=== PATIENT | female | born 1985 | race American Indian/Alaskan Native ===

== ENCOUNTER 2018-07-27 11:32 | Emergency (ER) | payer BC ==
[2018-07-27 11:32] VITALS: BMI 21.7
[2018-07-27 12:48] LABS: HCG,QUALITATIVE URINE NEGATIVE (NEGATIVE)
[2018-07-27] MEDS ORDERED: Sodium Chloride 0.9% 1,000 ML IV ONE (12:49)
[2018-07-27 12:53] LABS: SQUAMOUS EPITHIAL 2 /hpf (0-5); URINE BACTERIA RARE (<OCC); URINE BILIRUBIN NEGATIVE (NEGATIVE); URINE BLOOD NEGATIVE (NEGATIVE); URINE CLARITY Clear (Clear); URINE COLOR Yellow (YELLOW); URINE GLUCOSE (UA) NORMAL (Normal); URINE LEUKOCYTE ESTERASE 3+ Leu/uL (Negative); URINE PROTEIN NEGATIVE (NEGATIVE); URINE UROBILINOGEN NORMAL mg/dL (0.2-1.0)
[2018-07-27] MEDS ORDERED: Sodium Chloride 0.9% 1,000 ML ONE (13:07)
[2018-07-27 13:32] LABS: BASO % 0.2 % (0.0-2.0); HEMOGLOBIN 13.7 g/dL (11.0-16.0); LYMPH % 5.1 % (20.0-40.0); MEAN CORPUSCULAR HEMOGLOBIN 32.1 pg (27.0-31.0); MEAN CORPUSCULAR HGB CONC 33.3 g/dL (33.0-37.0); MEAN PLATELET VOLUME 9.3 fL (7.2-11.7); MONO # 1.4 K/uL (0.0-0.8); MONO % 7.2 % (0.0-10.0); NEUT # 16.8 K/uL (1.8-7.0); NEUT % 87.5 % (50.0-75.0); PLATELET COUNT 255 K/uL (130-400); RBC 4.26 Mil/uL (3.80-5.20); RED CELL DISTRIBUTION WIDTH 13.7 % (11.5-14.5)
[2018-07-27 13:34] LABS: MEAN CELL VOLUME 96.5 fL (81.0-99.0); WHITE BLOOD COUNT 19.2 K/uL (4.8-10.8)
[2018-07-27 13:47] LABS: ALB/GLOB RATIO 1.6 (1.0-2.1); ALBUMIN 4.4 g/dL (3.5-5.0); ALT/SGPT 12 U/L (9-52); AST/SGOT 20 U/L (14-36); BLOOD UREA NITROGEN 7 mg/dL (7-17); CALCIUM 9.6 mg/dl (8.6-10.4); GFR NON-AFRICAN AMERICAN > 60; LIPASE 44 U/L (23-300)
[2018-07-27] MEDS ORDERED: Iodixanol 320 MG/ML 100 ML BOTTLE IV ONE (14:02)
[2018-07-27 14:11] LABS: LYMPHOCYTE 6 % (20-40); MONOCYTE 3 % (0-10); NEUTROPHIL 91 % (50-75); TOTAL CELLS COUNTED 100
[2018-07-27 14:12] LABS: PLATELET ESTIMATE NORMAL (NORMAL)
[2018-07-27] MEDS ORDERED: Piperacillin/Tazobact 3.375 gm 100 ML IV STA (15:08)
[2018-07-27] MEDS ORDERED: Piperacillin/Tazobact 3.375 gm 100 ML IVPB ONE (15:27)
--- NOTE | 2018-07-27 16:27 | CT ---
Date of service: 07/27/2018 PROCEDURE: CT Abdomen and Pelvis with contrast HISTORY: right abd pain COMPARISON: Comparison is made with the previous study dated 02/04/2016 TECHNIQUE: Contrast dose: 100 mL of Visipaque 320 intravenously. Axial and reformatted coronal and sagittal CT images of the abdomen and pelvis were obtained after IV contrast administration. Radiation dose: Total exam DLP = 260.76 mGy-cm. This CT exam was performed using one or more of the following dose reduction techniques: Automated exposure control, adjustment of the mA and/or kV according to patient size, and/or use of iterative reconstruction technique. FINDINGS: LOWER THORAX: Unremarkable. LIVER: Mild hepatomegaly and mild diffuse low-attenuation of the liver is again noted. GALLBLADDER AND BILE DUCTS: Unremarkable. PANCREAS: Unremarkable. No gross lesion or ductal dilatation. SPLEEN: Unremarkable. ADRENALS: Unremarkable. No mass. KIDNEYS AND URETERS: Unremarkable. No hydronephrosis. No solid mass. VASCULATURE: Unremarkable. No aortic aneurysm. No aortic atherosclerotic calcification or mural plaque present. BOWEL: Mild diffuse wall thickening of the distal small bowel loops noted in the lower abdomen and pelvis suspicious for enteritis. APPENDIX: Normal appendix. PERITONEUM: Unremarkable. No free fluid. No free air. LYMPH NODES: Unremarkable. No enlarged lymph nodes. BLADDER: The urinary bladder is collapsed therefore cannot be evaluated. REPRODUCTIVE: Interval increase in the size of the uterus since the previous exam likely contains large heterogeneous fibroid. BONES: No acute fracture. OTHER FINDINGS: None. IMPRESSION: No evidence of acute appendicitis. Interval increase in the size of the uterus likely contains large heterogeneous fibroid. If clinically warranted further assessment by ultrasound may be obtained. Mild diffuse distal small bowel loops wall thickening suspicious for enteritis.
--- NOTE | 2018-07-27 16:55 | C.PDOC ---
History Of Present Illness 32 yo female come in for evaluation of suprapubuc/RLQ pain gradually developed since yesterday. Pain is constant, non-radiating, not related to urination or food intake. Denies fever, chills, recent illness, vomiting, diarrhea, UTI sx, hematuria, vaginal irritation or discharge. Ambulatory. Time Seen by Provider: 07/27/18 12:27 Chief Complaint (Nursing): Abdominal Pain History Per: Patient Past Medical History Reviewed: Historical Data, Nursing Documentation, Vital Signs Vital Signs: Last Vital Signs Temp 99.8 F H 07/27/18 14:54 Pulse 86 07/27/18 14:54 Resp 16 07/27/18 14:54 BP 134/82 07/27/18 14:54 Pulse Ox 100 07/27/18 14:54 - Medical History PMH: Fractures (LEFT TIBIAL PLATEAU 04/18/15), HTN Denies: Chronic Kidney Disease - [facility] Procedures INTRODUCE REGIONAL ANESTH IN PERIPH NRV, PLEXI, PERC (04/28/15) REPOSITION LEFT TIBIA WITH INT FIX, OPEN APPROACH (04/28/15) Family History: States: Unknown Family Hx - Social History Hx Tobacco Use: Yes Hx Alcohol Use: Yes (Few cocktails on a weekend.) Hx Substance Use: No - Immunization History Hx Tetanus Toxoid Vaccination: Yes Hx Influenza Vaccination: No Hx Pneumococcal Vaccination: No Review Of Systems Except As Marked, All Systems Reviewed And Found Negative. Constitutional: Negative for: Fever, Chills ENT: Negative for: Throat Pain Cardiovascular: Negative for: Chest Pain Respiratory: Negative for: Cough, Shortness of Breath Gastrointestinal: Positive for: Abdominal Pain. Negative for: Nausea, Vomiting, Diarrhea, Melena, Hematochezia, Hematemesis Genitourinary: Negative for: Dysuria Skin: Negative for: Rash Physical Exam - Physical Exam Appears: Well, Non-toxic, No Acute Distress Skin: Normal Color, Warm, Dry Head: Normacephalic Eye(s): bilateral: PERRL Nose: No Discharge Oral Mucosa: Moist Throat: No Erythema, No Drooling Neck: Trachea Midline, Supple Cardiovascular: Rhythm Regular, No Murmur, No JVD Respiratory: No Decreased Breath Sounds, No Accessory Muscle Use, No Stridor, No Wheezing Gastrointestinal/Abdominal: Soft, Tenderness (mod spurapubic tenderness, mild RLQ tenderness), No Distention, No Guarding, No Rebound Back: No CVA Tenderness Extremity: Normal ROM Neurological/Psych: Oriented x3, Normal Speech ED Course And Treatment - Laboratory Results Result Diagrams: 07/27/18 13:14 07/27/18 13:14 Lab Results: Total Bilirubin 0.9 mg/dL (0.2-1.3) 07/27/18 13:14 AST 20 U/L (14-36) 07/27/18 13:14 ALT 12 U/L (9-52) 07/27/18 13:14 Alkaline Phosphatase 92 U/L (38-126) 07/27/18 13:14 Total Protein 7.2 g/dL (6.3-8.3) 07/27/18 13:14 Albumin 4.4 g/dL (3.5-5.0) 07/27/18 13:14 Globulin 2.8 gm/dL (2.2-3.9) 07/27/18 13:14 Albumin/Globulin Ratio 1.6 (1.0-2.1) 07/27/18 13:14 Lipase 44 U/L (23-300) 07/27/18 13:14 Urine Color Yellow (YELLOW) 07/27/18 12:37 Urine Clarity Clear (Clear) 07/27/18 12:37 Urine pH 6.0 (5.0-8.0) 07/27/18 12:37 Ur Specific [place] 1.006 (1.003-1.030) 07/27/18 12:37 Urine Protein Negative mg/dL (NEGATIVE) 07/27/18 12:37 Urine Glucose (UA) Normal mg/dL (Normal) 07/27/18 12:37 Urine Ketones Negative mg/dL (NEGATIVE) 07/27/18 12:37 Urine Blood Negative (NEGATIVE) 07/27/18 12:37 Urine Nitrate Negative (NEGATIVE) 07/27/18 12:37 Urine Bilirubin Negative (NEGATIVE) 07/27/18 12:37 Urine Urobilinogen Normal mg/dL (0.2-1.0) 07/27/18 12:37 Ur Leukocyte Esterase 3+ Isidro/uL (Negative) H 07/27/18 12:37 Urine WBC (Auto) 12 /hpf (0-5) H 07/27/18 12:37 Urine RBC (Auto) 4 /hpf (0-3) H 07/27/18 12:37 Ur Squamous Epith Cells 2 /hpf (0-5) 07/27/18 12:37 Urine Bacteria Rare (<OCC) 07/27/18 12:37 Urine HCG, Qual Negative (NEGATIVE) 07/27/18 12:37 Urine HCG, Qual Negative (NEGATIVE) 07/27/18 12:37 O2 Sat by Pulse Oximetry: 100 Pulse Ox Interpretation: Normal - CT Scan/US CT A/P Other Rad Studies (CT/US): Radiology Report Reviewed CT/US Interpretation: Patient Name / ID : NELL FOX / [id number]. Exam Date : 07/27/2018 15:16:27 ( Approved ). Study Comment : Sex / Age : F / 32Y. Creator : Judith Hendrix. Dictator : Familia Feliz MD. Embedder : Emt Driver : Familia Feliz MD. Approver2 : Report Date : 07/27/2018 15:40:51. My Comment : . Date of service: 07/27/2018. PROCEDURE: CT Abdomen and Pelvis with contrast. HISTORY: right abd pain. COMPARISON: Comparison is made with the previous study dated 02/04/2016. TECHNIQUE: Contrast dose: 100 mL of Visipaque 320 intravenously. Axial and reformatted coronal and sagittal CT images of the abdomen and pelvis were obtained after IV contrast administration. Radiation dose: Total exam DLP = 260.76 mGy-cm. This CT exam was performed using one or more of the following dose reduction techniques: Automated exposure control, adjustment of the mA and/or kV according to patient size, and/or use of iterative reconstruction technique. FINDINGS: LOWER THORAX: Unremarkable. LIVER: Mild hepatomegaly and mild diffuse low- attenuation of the liver is again noted. GALLBLADDER AND BILE DUCTS: Unremarkable. PANCREAS: Unremarkable. No gross lesion or ductal dilatation. SPLEEN: Unremarkable. ADRENALS: Unremarkable. No mass. KIDNEYS AND URETERS: Unremarkable. No hydronephrosis. No solid mass. VASCULATURE: Unremarkable. No aortic aneurysm. No aortic atherosclerotic calcification or mural plaque present. BOWEL: Mild diffuse wall thickening of the distal small bowel loops noted in the lower abdomen and pelvis suspicious for enteritis. APPENDIX: Normal appendix. PERITONEUM: Unremarkable. No free fluid. No free air. LYMPH NODES: Unremarkable. No enlarged lymph nodes. BLADDER: The urinary bladder is collapsed therefore cannot be evaluated. REPRODUCTIVE: Interval increase in the size of the uterus since the previous exam likely contains large heterogeneous fibroid. BONES: No acute fracture. OTHER FINDINGS: None. IMPRESSION: No evidence of acute appendicitis. Interval increase in the size of the uterus likely contains large heterogeneous fibroid. If clinically warranted further assessment by ultrasound may be obtained. Mild diffuse distal small bowel loops wall thickening suspicious for enteritis. Progress Note: Pt was OBS in ED and remained stable. On re-eval, pt is afebrile, hemodynamicaly stable. Non-toxic. Pt was able tolerate PO well in ED, (-) vomiting. ABd: benign, (-) guarding, (-) rebound, (-) localized tenderness now. Back: (-) CVA tenderness. Neuorlogicaly intact. Blood work review , (+) acute leukocytosis with left shift. UA- c/w UTI.Zosyn given, UCx- pending. CT A/P review (-) acute appendicitis, (+) uterus fibroids. US ordered (-) ovarian torsion. results review and discussed with pt. Pt has clinical findings c/w large uterine fibroid, UTI Pt advised. ref. to F/u with PMD, [facility] In 2-3 days for re-evaluation. return if any new changes. Disposition Counseled Patient/Family Regarding: Studies Performed, Diagnosis, Need For Followup, Rx Given - Disposition [facility] Disposition: HOME/ ROUTINE Disposition Time: 16:46 Condition: STABLE Additional Instructions: Encourage fluids Take medication as prescribed Follow up with [facility] in 2-3 days for re-evaluation. return to ED if any worsening or new changes. Prescriptions: Cefdinir [Omnicef] 300 mg PO BID #14 cap traMADol [Ultram] 50 mg PO BID #7 tab Instructions: Urinary Tract Infections in Adults, Uterine Fibroids Forms: [facility] ([place]), Work Excuse - Clinical Impression Clinical Impression: UTI (urinary tract infection), Uterine fibroid
[2018-07-27 18:29] VITALS: RESP 18
--- NOTE | 2018-07-27 18:35 | US ---
Date of service: 07/27/2018 HISTORY: pain, hx of fibroid COMPARISON: None available. TECHNIQUE: Transabdominal and transvaginal pelvic ultrasound was performed. FINDINGS: UTERUS: Measures 11.5 x 8.5 x 8.6 cm. Retroverted enlarged. There is a 7.7 x 6.2 x 7.5 cm subserosal posterior posterior wall fibroid. ENDOMETRIUM: Measures 8.3 mm in diameter. Normal in appearance. CERVIX: No cervical abnormality identified. RIGHT OVARY: Measures 3.3 x 2.4 x 2.7 cm. No solid mass. Normal flow. LEFT OVARY: Measures 5.5 x 3.1 x 4.6 cm. No solid mass. Normal flow. There is a 2.2 x 2.3 x 2.2 cm complicated/hemorrhagic cyst and 2.0 x 2.1 cm simple cyst. FREE FLUID: No significant free fluid noted. OTHER FINDINGS: None. IMPRESSION: Retroverted enlarged uterus and a solitary 7.7 x 6.2 x 7.5 cm posterior wall subserosal fibroid. No evidence for torsion.
[2018-07-27 18:50] VITALS: O2SAT 100
[2018-07-27 19:04] VITALS: BP 129/81; PULSE 90; TEMP 99.1
== END 2018-07-27 19:04 | disposition home or self-care (01) ==
LOC: C.ER 11:32
DX: N39.0 Urinary tract infection, site not specified (principal); D25.9 Leiomyoma of uterus, unspecified
CPT/HCPCS: 74177; 76830; 76856; 80053; 81001; 83690; 84703; 85025; 87086; 96361; 96365; 96375; 99285; J1885; J2270; J2543; J7030; Q9967